=== PATIENT | female | born 1970 | race Caucasian/White ===

== ENCOUNTER 2023-01-08 04:57 | Day surgery (SDC) | payer OTHER ==
[2023-01-07 10:39] VITALS: BMI 26.6
[~2023-01-08 04:57] MED LIST: LIDOCAINE HCL 1% PRESERVATIVE FREE - 30ML VIAL IJ ONE
[2023-01-08] MEDS ORDERED: LIDOCAINE HCL 2% (20ML MULTI-DOSE VIAL) ONE (07:25)
[2023-01-08] MEDS ORDERED: LIDOCAINE HCL/PF 1% SDV 5ML VIAL ONE (07:26)
[2023-01-08] MEDS ORDERED: BUPIVACAINE HCL/PF 0.75% 10 ML VIAL ONE (07:26)
[2023-01-08] MEDS ORDERED: DEXAMETHASONE SOD PHOSPHATE 10 MG/1 ML VIAL ONE (07:26)
[2023-01-08] MEDS ORDERED: ACETAMINOPHEN 500 MG TABLET (FP) PO PRN (08:29)
[2023-01-08] MEDS ORDERED: BUPIVACAINE HCL/PF 0.5% (5MG/ML) 10 ML VIAL IJ ONE (11:10)
[2023-01-08 11:44] VITALS: RESP 20
[2023-01-08 12:10] VITALS: BP 120/70; PULSE 70; TEMP 97
== END 2023-01-08 12:10 | disposition home or self-care (01) ==
LOC: JASU-SURG 04:57
PROVIDERS: ATTEND Pain Medicine Pain Medicine
PROC: 3E0T33Z Introduction of Anti-inflammatory into Peripheral Nerves and Plexi, Percutaneous Approach (ICD-10-PCS; 2023-01-08)
PROC: 3E0T3BZ Introduction of Anesthetic Agent into Peripheral Nerves and Plexi, Percutaneous Approach (ICD-10-PCS; principal; 2023-01-08 11:00)
DX: M47.812 Spondylosis without myelopathy or radiculopathy, cervical region (principal)
CPT/HCPCS: 76000-TC-FY; 81025; J1100